=== PATIENT | female | born 1985 | race Caucasian/White ===

== ENCOUNTER 2019-04-24 20:36 | Inpatient (IN) | payer BC ==
[2019-04-24] MEDS ORDERED: Ibuprofen 800 MG TAB PO PRN (20:41)
[2019-04-24] MEDS ORDERED: Methylergonovine 0.2 MG/ML VIAL IM PRN (20:41)
[2019-04-24] MEDS ORDERED: HYDROcodone/Acetaminophen 5/325 mg Tablet PO PRN ×2 (20:41)
[2019-04-24] MEDS ORDERED: hydrALAZINE 20 MG/ML VIAL SLOW IVP PRN (20:41)
[2019-04-24] MEDS ORDERED: NS / Oxytocin 40 units/1000ml 1,000 ML IV PRN (20:41)
[2019-04-24] MEDS ORDERED: Butorphanol Tartrate 1 MG/ML VIAL SLOW IVP PRN (20:41)
[2019-04-24] MEDS ORDERED: Promethazine HCl 25 MG/ML VIAL IM PRN (20:41)
[2019-04-24] MEDS ORDERED: Misoprostol 200 MCG TAB PR PRN (20:41)
[2019-04-24] MEDS ORDERED: Lidocaine 1% (PF) 30 ML VIAL SC PRN (20:41)
[2019-04-24] MEDS ORDERED: Zolpidem Tartrate 5 MG TAB PO PRN (20:41)
[2019-04-24 21:22] VITALS: BMI 32.6
[2019-04-24] MEDS: Lactated Ringer's 1,000 ML IV PRN (21:40)
[2019-04-24] MEDS: Misoprostol 100 MCG TAB PO SCH (21:54)
[2019-04-24 22:59] LABS: Hemoglobin 12.8 g/dL (12.0-16.0); Mean Corpuscular HGB CONC 34.6 g/dL (32.0-36.0); Mean Corpuscular Hemoglobin 31.7 pg (27.0-31.0); Mean Corpuscular Volume 91.6 fL (78.0-98.0); Mean Platelet Volume 8.8 fL (7.4-10.4); Platelet Count 229 thou/uL (130-400); RBC Distribution Width 11.4 % (11.5-14.5); Red Blood Cell (RBC) Count 4.05 mill/uL (4.20-5.40); White Blood Cell (WBC) Count 11.8 thou/uL (4.8-10.8)
[2019-04-24 23:37] LABS: Syphilis Antibody Nonreactive (Nonreactive); Syphilis Antibody Index 0.05 S/CO (<1.00 Non-Reactive)
[2019-04-25 02:38] LABS: HBSAg Index 0.27 S/CO (0-0.99); Hep B Surf Ag Non-Reactive S/CO (NonReactive)
[2019-04-25] MEDS ORDERED: NS w/ Oxytocin 10 units 500 ML ONE (04:56)
[2019-04-25] MEDS: Lactated Ringer's 1,000 ML IV PRN ×3 (05:17→16:42)
[2019-04-25] MEDS ORDERED: Penicillin G Potassium 5 MILL.UNITS in Sodium Chloride 0.9% 100 ML IVPB SCH (08:00)
[2019-04-25] MEDS: Penicillin G 2.5 MILL.units 2.5 MILL.UNITS in Premix Bag 1 BAG IVPB SCH ×4 (09:44→22:10)
[2019-04-25] MEDS: Misoprostol 100 MCG TAB PO SCH ×3 (10:44→19:58)
[2019-04-25] MEDS ORDERED: Fentanyl 4 mcg/Bup 0.1% Cadd 100 ML ONE ×2 (12:45→20:40)
--- NOTE | 2019-04-25 13:22 | PDOC.LDHP ---
Labor and Delivery H&P Chief complaint: other (Medically indicated induction of labor due to postdates and oligohydramnios) HPI: She is doing well, starting to hurt more. Current gestational age (weeks): 41 Due date: 04/18/19 Dating criteria: last menstrual period Grav: 2 Para: 0 Current complications: oligohydramnios, other (post dates) Abnormal US findings: Yes (5.8cm NATALI on 04/24/19) Current medications: pre-jace vitamins Allergies/Adverse Reactions: Allergies Allergy/AdvReac Type Severity Reaction Status Date / Time sulfamethoxazole Allergy Mild Rash Verified 04/24/19 21:03 [From Bactrim] trimethoprim [From Bactrim] Allergy Mild Rash Verified 04/24/19 21:03 Social history: none - Physical Exam Abnormal vital signs: mild range labile blood pressures. General: NAD Heart: RRR Lungs: nonlabored breathing Abdomen: gravid Extremeties: trace edema FHT: category 1 - Vaginal Exam cm dilated: 4 Effacement: 75% Station: -3 - OB Labs Blood type: A RH: positive Antibody Screen: negative HIV: negative RPR: negative HEPSAg: negative GBS: positive Urine drug screen: not done Rubella: immune - Assessment L&D Assessment: medically indicated induction - Plan Plan: admit to L&D, cervical ripening, GBS antibiotic prophylaxis
--- NOTE | 2019-04-25 13:30 | PDOC.LDPN ---
Labor & Delivery Progress Note - Subjective Subjective: painful contractions - Objective Vital signs reviewed and normal: yes General: breathing through contractions Uterine fundus: non tender Dilation: 5 Effacement: 90% Station: -2 FHT: category 1 AROM: clear fluid - Assessment (1) Oligohydramnios Code(s): O41.00X0 - OLIGOHYDRAMNIOS, UNSP TRIMESTER, NOT APPLICABLE OR UNSP Current Visit: Yes Status: Acute (2) Post-dates Code(s): O48.0 - POST-TERM Current Visit: Yes Status: Acute (3) 41 weeks gestation of Code(s): Z3A.41 - 41 WEEKS GESTATION OF Current Visit: Yes Status : Acute Plan: continue plan of care, labor augmentation, pitocin for augmentation
[2019-04-25] MEDS ORDERED: Lactated Ringer's 500 ML IV PRN (13:44)
[2019-04-25] MEDS ORDERED: diphenhydrAMINE 50 MG/ML VIAL IVP PRN (13:44)
[2019-04-25] MEDS ORDERED: Naloxone HCl 0.4 mg/ml Vial IVP PRN ×2 (13:44)
[2019-04-25] MEDS ORDERED: Acetaminophen 325 MG TAB PO PRN (13:44)
[2019-04-25] MEDS ORDERED: Ondansetron PF 4 MG/2 ML Vial IVP PRN (13:44)
[2019-04-25] MEDS ORDERED: Promethazine HCl 25 MG/ML VIAL IM PRN (13:44)
[2019-04-25] MEDS ORDERED: ePHEDrine/0.9% NaCl/PF SYRINGE 50 mg/10 ml SLOW IVP PRN (13:44)
[2019-04-25] MEDS ORDERED: Communication Order-Pharmacy FS SCH (13:45)
[2019-04-25] MEDS ORDERED: Fentanyl 4 mcg/Bupivacaine 0.1% Cassette 100 ML EPIDURAL SCH (13:45)
[2019-04-25] MEDS: NS w/ Oxytocin 10 units 500 ML IV SCH ×2 (14:21→19:57)
[2019-04-25] MEDS: Ondansetron PF 4 MG/2 ML Vial IVP PRN (18:00)
[2019-04-25 20:45] LABS: ALT (SGPT) 15 U/L (8-55); AST (SGOT) 20 U/L (5-34); Albumin 3.4 g/dL (3.5-5.0); Alkaline Phosphatase 195 U/L (40-150); Anion Gap 13 mmol/L (10-20); BUN (Urea Nitrogen) 8 mg/dL (7.0-18.7); Bilirubin, Total 0.8 mg/dL (0.2-1.2); Calc. Creatinine Clearance 138 mL/min (70-130); Calcium 9.3 mg/dL (7.8-10.44); Carbon Dioxide 22 mmol/L (22-29); Chloride 105 mmol/L (98-107); Estimated GFR-MDRD 73; Globulin 2.8 g/dL (2.4-3.5); Glucose 76 mg/dL (70-105); Potassium 4.5 mmol/L (3.5-5.1); Protein, Total 6.2 g/dL (6.0-8.3); Sodium 135 mmol/L (136-145)
[2019-04-25 21:02] LABS: Creatinine, Urine 77.95 mg/dL (47-110)
[2019-04-26] MEDS: Lactated Ringer's 1,000 ML IV PRN ×2 (00:17→05:00)
[2019-04-26] MEDS: Penicillin G 2.5 MILL.units 2.5 MILL.UNITS in Premix Bag 1 BAG IVPB SCH ×3 (02:01→10:58)
[2019-04-26] MEDS ORDERED: Fentanyl 4 mcg/Bup 0.1% Cadd 100 ML ONE ×2 (04:01→10:44)
[2019-04-26] MEDS: Ondansetron PF 4 MG/2 ML Vial IVP PRN (05:08)
[2019-04-26] MEDS ORDERED: Lidocaine 1% (PF) 30 ML VIAL ONE (07:42)
[2019-04-26] MEDS ORDERED: NS / Oxytocin 40 units/1000ml 1,000 ML ONE (07:43)
[2019-04-26] MEDS: NS w/ Oxytocin 10 units 500 ML IV SCH (07:45)
[2019-04-26] MEDS: Misoprostol 100 MCG TAB PO SCH ×2 (08:00→13:23)
[2019-04-26] MEDS ORDERED: Methylergonovine 0.2 MG/ML VIAL ONE (09:40)
[2019-04-26] MEDS ORDERED: Bicitra 30 ML UDCUP ONE ×2 (11:22)
[2019-04-26] MEDS ORDERED: Bicitra 30 ML UDCUP PO SCH (11:30)
[2019-04-26] MEDS ORDERED: Azithromycin 500 MG in Sodium Chloride 0.9% 250 ML 250 ML IVPB SCH ×2 (11:30→19:00)
[2019-04-26] MEDS ORDERED: Dexamethasone 4 mg/ml Vial ONE (11:34)
[2019-04-26] MEDS ORDERED: diphenhydrAMINE 50 MG/ML VIAL ONE ×3 (11:34→16:24)
[2019-04-26] MEDS ORDERED: Ketorolac Tromethamine 30 MG/ML VIAL ONE ×3 (11:34→16:24)
[2019-04-26] MEDS ORDERED: Lidocaine 2% 10 ML INJ ONE (11:34)
[2019-04-26] MEDS ORDERED: Oxytocin 10 UNITS/ML VIAL ONE (11:34)
[2019-04-26] MEDS ORDERED: Ondansetron PF 4 MG/2 ML Vial ONE ×3 (11:34→16:24)
[2019-04-26] MEDS ORDERED: PROPOFOL 0 ML ONE (11:35)
[2019-04-26] MEDS ORDERED: Succinylcholine Chloride 20 MG/ML 10 ml SYRINGE FS ONE (11:35)
[2019-04-26] MEDS: Carboprost 250 MCG/ML AMP ONE ×2 (11:41→17:27)
[2019-04-26] MEDS ORDERED: MORPHINE 5 MG/10 ML PF VIAL ONE (11:44)
[2019-04-26] MEDS ORDERED: Phenylephrine HCL 10 MG/ML VIAL ONE (11:53)
[2019-04-26] MEDS ORDERED: Misoprostol 200 MCG TAB ONE (12:04)
[2019-04-26] MEDS ORDERED: Meperidine HCl/PF 25 MG/ML VIAL SLOW IVP PRN (12:26)
[2019-04-26] MEDS ORDERED: Naloxone HCl 0.4 mg/ml Vial IV PRN (12:26)
[2019-04-26] MEDS ORDERED: Promethazine HCl 25 MG SUPP PR PRN (12:26)
[2019-04-26] MEDS ORDERED: HYDROmorphone 2 MG/ML VIAL SLOW IVP PRN (12:26)
[2019-04-26] MEDS ORDERED: Naloxone HCl 0.4 mg/ml Vial IVP PRN ×2 (12:26)
[2019-04-26] MEDS ORDERED: L&D-Morphine 4 MG/ML VIAL SLOW IVP PRN (12:26)
[2019-04-26] MEDS ORDERED: Ondansetron PF 4 MG/2 ML Vial IVP PRN (12:26)
[2019-04-26] MEDS ORDERED: Promethazine HCl 25 MG/ML VIAL IM PRN ×2 (12:26→14:41)
[2019-04-26] MEDS ORDERED: diphenhydrAMINE 50 MG/ML VIAL IVP PRN (12:26)
[2019-04-26] MEDS ORDERED: Ondansetron HCl/PF 4 MG/2 ML Vial IVP PRN (12:26)
[2019-04-26] MEDS: Misoprostol 200 MCG TAB ONE ×2 (12:30→13:14)
[2019-04-26] MEDS ORDERED: Communication Order-Pharmacy FS SCH (12:30)
[2019-04-26] MEDS ORDERED: Carboprost 250 MCG/ML AMP ONE ×2 (13:21→17:23)
--- NOTE | 2019-04-26 13:44 | OP ---
DATE OF PROCEDURE: 04/26/2019 PREOPERATIVE DIAGNOSES: 1. 41 week IUP, failure to progress. 2. Inability to tolerate labor. POSTOPERATIVE DIAGNOSES: 1. 41-week intrauterine . 2. Deep transverse arrest. PROCEDURE PERFORMED: Primary low segment transverse section via Pfannenstiel incision. SURGEON; Cesar Trejo MD BOX COVERER HAND SURGEONS: Hafsa Carter MD and Beverly Juarez, Certified Nurse Distribution Technician. FINDINGS: 1. Viable male , weight 8 pounds 9 ounces, found in the transverse presentation deep in the pelvis. 2. Apgars 8 and 8. 3. Nuchal cord x1. 4. Normal uterus, tubes, and ovaries bilaterally. PROPHYLAXIS: Ancef 2 gms ESTIMATED BLOOD LOSS: 800 mL, QBL per Nursing. COMPLICATIONS: None. BRIEF PATIENT DESCRIPTION: Ms. Hooker is a 33-year-old white female at 41 weeks , had been induced by Flavia Light for oligohydramnios. She progressed to completely dilated and with pushing, was having heart tones in the 90s. Decision was made to proceed to the OR. Her consent for section had already been obtained and she had a written consent on the chart. I was sked to perform the section and the pt. agrees. DESCRIPTION OF PROCEDURE: After good epidural anesthesia was achieved, the patient was prepped and draped in usual sterile fashion in the supine position with leftward tilt. A transverse incision was made 2 fingerbreadths above the symphysis pubis and was carried down into the abdominal cavity. The uterus was identified, and a bladder flap was created in the peritoneum. A transverse incision was made in the lower uterine segment and was extended bluntly using the fingers. This fetus was found deep in the pelvis in the occiput transverse position with a tight nuchal cord. The baby's head was delivered and the cord was reduced. The remainder of the infant was then delivered. The cord was clamped and cut. Cord blood and cord gases were obtained. Manual removal of the placenta was then accomplished. The inside of the uterus was curetted with a dry lap to remove all remaining placental fragments. The uterus was noted to be boggy and Hemabate was ordered. Closure of the uterine incision was begun using a running locking suture of Monocryl. Good hemostasis was noted with single-layer closure. The uterus was replaced in the abdominal cavity and was noted to be firm after replacement. The pelvic gutters were cleared of all clots and debris and the peritoneal cavity was copiously irrigated. Attention was then returned to the uterine incision and was noted to be hemostatic. The peritoneum was not closed secondary to good approximation. The fascia was closed using 2 sutures of PDS, brought laterally to the midline in an alternating running locking fashion. The subcutaneous tissue was thoroughly irrigated and made dry with Bovie coagulation technique. The subcutaneous tissue was reapproximated using interrupted gut sutures. The skin was closed with metal juan carlos. Sponge, lap, and needle counts were correct. The patient tolerated the procedure well and was taken to the recovery room in good condition. Job ID: [id number] [facility]
[2019-04-26] MEDS ORDERED: hydrALAZINE 20 MG/ML VIAL SLOW IVP PRN (14:41)
[2019-04-26] MEDS ORDERED: Measles/Mumps/Rubella 10 MCG/0.5 ML VIAL SC ONE (14:41)
[2019-04-26] MEDS ORDERED: Bisacodyl 10 MG SUPP PR PRN (14:41)
[2019-04-26] MEDS ORDERED: Misoprostol 200 MCG TAB PR PRN (14:41)
[2019-04-26] MEDS ORDERED: Adacel (T-DAP) 0.5 ML SYRINGE IM ONE (14:41)
[2019-04-26] MEDS ORDERED: NS / Oxytocin 40 units/1000ml 1,000 ML IV SCH (14:41)
[2019-04-26] MEDS ORDERED: Lanolin Ointment 7 GM TUBE TOP PRN (14:41)
[2019-04-26] MEDS ORDERED: Acetaminophen 325 MG TAB PO PRN (14:41)
[2019-04-26] MEDS ORDERED: ePHEDrine 50 MG/ML VIAL ONE ×2 (16:13→16:24)
[2019-04-26] MEDS ORDERED: Dexamethasone 20 MG/5 ML VIAL ONE ×2 (16:13→16:24)
[2019-04-26] MEDS ORDERED: PHENYLEPHRINE-NS 100 MCG/ML 10 ML SYRINGE ONE ×2 (16:13→16:24)
[2019-04-26] MEDS ORDERED: Lidocaine 2% PF 5 ML VIAL ONE ×2 (16:13→16:24)
[2019-04-26] MEDS: Diphenoxylate HCl/Atropine Tablet PO SCH ×2 (16:51→17:48)
[2019-04-26] MEDS ORDERED: Carboprost 250 MCG/ML AMP IM SCH (17:15)
--- NOTE | 2019-04-26 17:17 | PDOC.EVN ---
Event Note - Event Note Event Note: CTSP for bleeding by Floor RN. VSS AF P= 80's. PEX= fundus below umbilicus, pelvic shows small amt. of clot in upper MARY, removed. A?P; atfranco s/p C/s. Hemobate 250 mcg now, and start Cytotec PO x 3 doses. Observe closely.
[2019-04-26] MEDS: Ketorolac Tromethamine 30 MG/ML VIAL IVP SCH (17:38)
[2019-04-26] MEDS ORDERED: Morphine 2 MG/ML SYRINGE SLOW IVP SCH (17:45)
[2019-04-26] MEDS: Misoprostol 200 MCG TAB PO SCH (17:48)
[2019-04-26] MEDS: Lactated Ringer's 1,000 ML IV SCH ×2 (18:37→23:26)
[2019-04-26] MEDS: Docusate Calcium (SURFAK) 240 MG CAP PO SCH (21:33)
[2019-04-26] MEDS: Ferrous Sulfate 325 MG TAB PO SCH ×2 (21:51→23:12)
[2019-04-27] MEDS ORDERED: Sodium Chloride 0.9% 10 ML ONE (00:37)
[2019-04-27] MEDS: Ketorolac Tromethamine 30 MG/ML VIAL IVP SCH ×2 (00:44→06:18)
[2019-04-27] MEDS: Misoprostol 200 MCG TAB PO SCH ×2 (00:45→06:19)
--- NOTE | 2019-04-27 00:46 | PDOC.PP ---
Post Progress Note Post Day #: POD1 Subjective: Resting, no complaints. No further bleeding. PO intake tolerated: yes Flatus: no Ambulation: no Vital Signs (12 hours) Temp Pulse Resp BP Pulse Ox 04/26/19 19:51 98.1 F 87 16 137/88 100 04/26/19 18:30 90 18 133/86 04/26/19 18:00 84 04/26/19 17:30 100 18 164/103 H 04/26/19 16:55 80 18 159/98 H 04/26/19 16:30 84 18 139/98 H 04/26/19 15:30 98.2 F 85 16 141/92 H 97 Weight Weight 97.522 kg - Physical Examination General: NAD Respiratory: non-labored breathing Abdominal: no distention Extremities: negative homans (B) Skin: CS incision dry & intact Neurological: no gross focal deficits Psychiatric: normal affect Result Diagrams: 04/24/19 22:51 04/25/19 20:19 Additional Labs: Post Labs Blood Type A POSITIVE 04/24/19 23:30 Hep Bs Antigen Non-Reactive S/CO (NonReactive) 04/24/19 22:51 - Assessment/Plan Doing well. Routine postop care. VJ dasilva this AM.
[2019-04-27] MEDS: Lactated Ringer's 1,000 ML IV SCH ×3 (06:55→20:39)
[2019-04-27 07:28] LABS: Hemoglobin 9.3 g/dL (12.0-16.0); Mean Corpuscular HGB CONC 33.7 g/dL (32.0-36.0); Mean Corpuscular Hemoglobin 32.2 pg (27.0-31.0); Mean Corpuscular Volume 95.5 fL (78.0-98.0); Mean Platelet Volume 8.4 fL (7.4-10.4); Platelet Count 188 thou/uL (130-400); RBC Distribution Width 11.8 % (11.5-14.5); Red Blood Cell (RBC) Count 2.88 mill/uL (4.20-5.40); White Blood Cell (WBC) Count 22.2 thou/uL (4.8-10.8)
[2019-04-27] MEDS: Misoprostol 100 MCG TAB PO SCH ×2 (07:29→07:35)
[2019-04-27] MEDS: Ferrous Sulfate 325 MG TAB PO SCH ×2 (10:12→21:34)
[2019-04-27] MEDS: Prenatal Vitamin 1 TAB PO SCH (10:12)
[2019-04-27] MEDS: Docusate Calcium (SURFAK) 240 MG CAP PO SCH ×2 (10:12→20:39)
[2019-04-27] MEDS ORDERED: ePHEDrine/0.9% NaCl/PF SYRINGE 50 mg/10 ml ONE (11:11)
[2019-04-27] MEDS ORDERED: Bupivacaine/Epinephrine 0.25% 30 ML VIAL ONE (11:11)
[2019-04-27] MEDS: Ibuprofen 800 MG TAB PO SCH ×2 (14:30→21:34)
[2019-04-27] MEDS: HYDROcodone/Acetaminophen 5/325 mg Tablet PO PRN ×2 (19:11→23:21)
[2019-04-27] MEDS: Simethicone Chewable 80 MG TAB PO PRN (21:39)
[2019-04-27] MEDS ORDERED: Loperamide HCl 2 MG CAP PO PRN (21:50)
[2019-04-28] MEDS: HYDROcodone/Acetaminophen 5/325 mg Tablet PO PRN ×3 (03:33→22:56)
[2019-04-28] MEDS: Ibuprofen 800 MG TAB PO SCH ×3 (05:53→21:34)
[2019-04-28] MEDS: Lactated Ringer's 1,000 ML IV SCH ×3 (06:51→22:53)
--- NOTE | 2019-04-28 07:25 | PDOC.PP ---
Post Progress Note Post Day #: 2 Subjective: Had a rough night but otherwise doing well. Pain controlled with [place]. PO intake tolerated: yes Flatus: yes Ambulation: yes Vital Signs (12 hours) Temp Pulse Resp BP Pulse Ox 04/28/19 03:40 98.4 F 79 18 132/83 98 04/27/19 23:15 98.1 F 93 18 132/75 97 Weight Weight 215 lb - Physical Examination General: NAD Respiratory: non-labored breathing Abdominal: lochia (normal), no distention, appropriately TTP Fundus firm & at: below umbilicus Skin: CS incision dry & intact, no rash Neurological: no gross focal deficits Psychiatric: A&Ox3, normal affect Result Diagrams: 04/27/19 06:56 04/25/19 20:19 Additional Labs: Post Labs Blood Type A POSITIVE 04/24/19 23:30 Hep Bs Antigen Non-Reactive S/CO (NonReactive) 04/24/19 22:51 (1) delivery delivered Code(s): O82 - ENCOUNTER FOR DELIVERY WITHOUT INDICATION Status: Acute - Assessment/Plan Patient unsure if she would like to go home today. Will likely stay for support and d/c tomorrow.
[2019-04-28] MEDS: Prenatal Vitamin 1 TAB PO SCH (10:55)
[2019-04-28] MEDS: Ferrous Sulfate 325 MG TAB PO SCH ×2 (10:55→21:34)
[2019-04-28] MEDS: Docusate Calcium (SURFAK) 240 MG CAP PO SCH ×2 (10:55→21:34)
[2019-04-28] MEDS ORDERED: Ibuprofen 800 MG TAB PO SCH (22:00)
[2019-04-29] MEDS: Lactated Ringer's 1,000 ML IV SCH (03:51)
[2019-04-29] MEDS: Ibuprofen 800 MG TAB PO SCH (05:32)
[2019-04-29 08:06] VITALS: BP 142/91; TEMP 98.6
[2019-04-29] MEDS: Docusate Calcium (SURFAK) 240 MG CAP PO SCH (09:10)
[2019-04-29] MEDS: Prenatal Vitamin 1 TAB PO SCH (09:10)
[2019-04-29] MEDS: Ferrous Sulfate 325 MG TAB PO SCH (09:10)
[2019-04-29] MEDS: HYDROcodone/Acetaminophen 5/325 mg Tablet PO PRN (11:53)
[2019-04-29] MEDS: Simethicone Chewable 80 MG TAB PO PRN (11:54)
== END 2019-04-29 13:22 | disposition home or self-care (01) | DRG 787 ==
LOC: L&D 20:36 → 3SE 04-26 15:40
PROVIDERS: ADMIT Student in an Organized Health Care Education/Training Program; ATTEND Student in an Organized Health Care Education/Training Program
PROC: 10D00Z1 Extraction of Products of Conception, Low, Open Approach (ICD-10-PCS; principal; 2019-04-26)
DX: O48.0 Post-term pregnancy (principal); O41.03X0 Oligohydramnios, third trimester, not applicable or unspecified; O64.0XX0 Obstructed labor due to incomplete rotation of fetal head, not applicable or unspecified; O69.81X0 Labor and delivery complicated by cord around neck, without compression, not applicable or unspecified; Z3A.41 41 weeks gestation of pregnancy; Z37.0 Single live birth
CPT/HCPCS: 36415; 51702; 80053; 82570; 82805; 84156; 85027; 86780; 86850; 86900; 86901; 87340; 88307; 90707; 90715; J0456; J0690; J1100; J1200; J1885; J2001; J2210; J2270; J2274; J2310; J2370; J2405; J2540; J2590; J2704; J3490; J7050